=== PATIENT | male | born 1970 | race Caucasian/White ===

== ENCOUNTER 2016-10-23 05:54 | Emergency (ER) | payer SELFPAY ==
[~2016-10-23] VITALS: Ht 172.7 cm; Wt 90.9 kg
[2016-10-23] MEDS ORDERED: IBUPROFEN 600 MG TABLET PO ONE (06:30)
[2016-10-23 08:15] VITALS: BP 115/72
== END 2016-10-23 08:17 | disposition home or self-care (01) ==
LOC: EMS 05:57
DX: M79.631 Pain in right forearm (principal); M25.561 Pain in right knee; R07.89 Other chest pain; V43.52XA Car driver injured in collision with other type car in traffic accident, initial encounter; Y93.89 Activity, other specified; Y92.89 Other specified places as the place of occurrence of the external cause; Y99.9 Unspecified external cause status
CPT/HCPCS: 99284